=== PATIENT | female | born 1940 | race Caucasian/White ===

== ENCOUNTER 2016-07-17 07:45 | Outpatient (CLI) | payer MEDICARE, MEDICAID | END 2016-07-17 07:46 | disposition home or self-care (01) | DX: E78.5 Hyperlipidemia, unspecified (principal); N18.3 Chronic kidney disease, stage 3 (moderate); I12.9 Hypertensive chronic kidney disease with stage 1 through stage 4 chronic kidney disease, or unspecified chronic kidney disease ==

== ENCOUNTER 2017-09-05 08:00 | Outpatient (CLI) | payer MEDICARE, MEDICAID ==
[2017-09-05 12:23] LABS: BASOPHILS # (AUTO) 0.1 10^3/uL (0.0-0.1); BASOPHILS % (AUTO) 1.9 %; EOSINOPHILS # (AUTO) 0.5 10^3/uL (0.0-0.7); EOSINOPHILS % (AUTO) 8.1 %; HGB - HEMOGLOBIN 12.6 g/dL (12.0-16.0); LYMPHOCYTES # (AUTO) 1.7 10^3/uL (1.5-3.5); LYMPHOCYTES % (AUTO) 25.5 %; MEAN CORPUSCULAR HEMOGLOBIN 31.9 pg (27.0-31.0); MEAN CORPUSCULAR HGB CONC 33.8 g/dL (32.0-36.0); MEAN CORPUSCULAR VOLUME 94.4 fL (81.0-99.0); MEAN PLATELET VOLUME 7.8 fL (7.9-10.8); MONOCYTES # (AUTO) 0.7 10^3/uL (0.0-1.0); MONOCYTES % (AUTO) 10.3 %; NEUTROPHILS # (AUTO) 3.7 10^3/uL (1.5-6.6); NEUTROPHILS % (AUTO) 54.2 %; PLT - PLATELET COUNT 277 10^3/uL (130-450); RED BLOOD COUNT 3.95 10^6/uL (4.20-5.40); RED CELL DISTRIBUTION WIDTH 12.5 % (12.0-15.0); WHITE BLOOD COUNT 6.7 x10^3/uL (4.8-10.8)
[2017-09-05 13:13] LABS: ALBUMIN 3.5 g/dL (3.2-5.5); ALBUMIN/GLOBULIN RATIO 1.1 (1.0-2.2); ALKALINE PHOSPHATASE 71 IU/L (42-121); ALT ALANINE AMINOTRANSFERASE 13 IU/L (10-60); AST ASPARTATE AMINOTRANSFERASE 21 IU/L (10-42); BILIRUBIN,TOTAL 0.7 mg/dL (0.2-1.0); BUN - BLOOD UREA NITROGEN 16 mg/dL (6-20); CALCIUM 9.1 mg/dL (8.5-10.3); CARBON DIOXIDE - CO2 27 mmol/L (21-32); CHLORIDE 102 mmol/L (101-111); CHOL/HDL RATIO 6.6 (<4.4); CHOLESTEROL 379 mg/dL; CREATININE 1.1 mg/dL (0.4-1.0); GFR - MDRD 49 (>89); GLUCOSE 83 mg/dL (70-100); HDL CHOLESTEROL 57 mg/dL; LDL CHOLESTEROL,CALCULATED 298 mg/dL; LDL/HDL RATIO 5.2 (<4.4); SODIUM 137 mmol/L (135-145); TOTAL PROTEIN 6.6 g/dL (6.7-8.2); VLDL CHOLESTEROL 24 mg/dL
== END 2017-09-05 08:01 | disposition home or self-care (01) ==
LOC: LAB.WCP 08:00
PROVIDERS: ATTEND Physician Assistant Medical
DX: E87.6 Hypokalemia (principal); I10 Essential (primary) hypertension; E78.5 Hyperlipidemia, unspecified
CPT/HCPCS: 36415; 80053; 80061; 83721; 84443; 85025

== ENCOUNTER 2018-08-24 08:00 | Outpatient (CLI) | payer MEDICARE, MEDICAID ==
[2018-08-24 18:08] LABS: BASOPHILS # (AUTO) 0.1 10^3/uL (0.0-0.1); BASOPHILS % (AUTO) 1.6 %; EOSINOPHILS # (AUTO) 0.6 10^3/uL (0.0-0.7); EOSINOPHILS % (AUTO) 8.6 %; HGB - HEMOGLOBIN 12.2 g/dL (12.0-16.0); LYMPHOCYTES # (AUTO) 1.3 10^3/uL (1.5-3.5); MEAN CORPUSCULAR HEMOGLOBIN 29.7 pg (27.0-31.0); MEAN CORPUSCULAR HGB CONC 30.4 g/dL (32.0-36.0); MEAN CORPUSCULAR VOLUME 97.6 fL (81.0-99.0); MONOCYTES # (AUTO) 0.7 10^3/uL (0.0-1.0); MONOCYTES % (AUTO) 9.3 %; NEUTROPHILS # (AUTO) 4.3 10^3/uL (1.5-6.6); NEUTROPHILS % (AUTO) 60.9 %; PLT - PLATELET COUNT 287 10^3/uL (130-450); RED BLOOD COUNT 4.11 10^6/uL (4.20-5.40); RED CELL DISTRIBUTION WIDTH 12.8 % (12.0-15.0)
[2018-08-24 18:28] LABS: ALBUMIN 3.7 g/dL (3.2-5.5); ALBUMIN/GLOBULIN RATIO 1.2 (1.0-2.2); ALKALINE PHOSPHATASE 74 IU/L (42-121); ALT ALANINE AMINOTRANSFERASE 11 IU/L (10-60); AST ASPARTATE AMINOTRANSFERASE 19 IU/L (10-42); BILIRUBIN,TOTAL 0.8 mg/dL (0.2-1.0); BUN - BLOOD UREA NITROGEN 14 mg/dL (6-20); CHOL/HDL RATIO 7.6 (<4.4); CHOLESTEROL 382 mg/dL; CREATININE 1.1 mg/dL (0.4-1.0); GFR - MDRD 48 (>89); HDL CHOLESTEROL 50 mg/dL; LDL CHOLESTEROL,CALCULATED 306 mg/dL; LDL/HDL RATIO 6.1 (<4.4); TOTAL PROTEIN 6.8 g/dL (6.7-8.2); VLDL CHOLESTEROL 26 mg/dL
[2018-08-24 18:33] LABS: CALCIUM 9.4 mg/dL (8.5-10.3); CARBON DIOXIDE - CO2 26 mmol/L (21-32); CHLORIDE 104 mmol/L (101-111); GLUCOSE 82 mg/dL (70-100); SODIUM 141 mmol/L (135-145)
== END 2018-08-24 08:01 | disposition home or self-care (01) ==
LOC: LAB.WCP 08:00
PROVIDERS: ATTEND Family Medicine
DX: E78.5 Hyperlipidemia, unspecified (principal); I10 Essential (primary) hypertension; H49.00 Third [oculomotor] nerve palsy, unspecified eye
CPT/HCPCS: 36415; 80053; 80061; 83721; 84443; 85025

== ENCOUNTER 2018-09-11 14:20 | Outpatient (CLI) | payer MEDICARE, MEDICAID ==
--- NOTE | 2018-09-14 11:51 | Mammography Report ---
Reason: SCREENING MAMMO Procedure Date: 09/11/2018 Accession Number: [id number] / [id number] Procedure: MGN - Screening Mammo Dig Bilat CPT Code: FULL RESULT: EXAM: Screening Mammo Dig Bilat DATE: 09/11/2018 2:53 PM CLINICAL HISTORY: Screening encounter. No reported risk factors. TECHNIQUE: (B) - Bilateral CC and MLO views were obtained. COMPARISON: 01/27/2013 and 12/23/2011. PARENCHYMAL PATTERN: (A) - The breast(s) demonstrate(s) scattered fibroglandular densities. FINDINGS: There are coarse typically benign calcifications. Nodular appearance in the right breast demonstrates long-term stability, typically benign. There are no suspicious masses, calcifications, or areas of distortion. IMPRESSION: Benign findings. BI-RADS category 2. RECOMMENDATION: (ANNUAL) - Recommend routine annual screening mammography. BI-RADS CATEGORY: (2) - Benign Findings. STANDARD QUALIFYING STATEMENTS: 1. This examination was not reviewed with the aid of Computer-Aided Detection (CAD). 2. A negative or benign imaging report should not preclude biopsy if clinically suspicious findings are present. 3. Dense breasts may obscure an underlying neoplasm. 4. This examination was reviewed without the aid of 3D breast imaging (tomosynthesis).
== END 2018-09-11 14:21 | disposition home or self-care (01) ==
LOC: DI.N 14:20
PROVIDERS: ATTEND Family Medicine
DX: Z12.31 Encounter for screening mammogram for malignant neoplasm of breast (principal)
CPT/HCPCS: 77067

== ENCOUNTER 2019-04-01 12:05 | Outpatient (CLI) | payer MEDICARE, MEDICAID | END 2019-04-01 12:06 | disposition critical access hospital (66) | LOC: EMS 12:05 | PROVIDERS: ATTEND Surgery | DX: R10.9 Unspecified abdominal pain (principal) | CPT/HCPCS: A0425; A0427 ==

== ENCOUNTER 2019-04-01 12:34 | Inpatient (IN) | payer MEDICARE, MEDICAID ==
--- NOTE | 2019-04-01 13:10 | ED Physician Documentation ---
PD HPI ABD PAIN - Stated complaint Stated Complaint: ABD PAIN - Chief complaint Chief Complaint: Abd Pain - History obtained from History obtained from: Patient - History of Present Illness Timing - onset: Today, Last night (The patient had had no bowel movement for the last 5 or 6 days though states she has a history of chronic constipation will often go 5 or 6 days. Typically she will use a stool softener and will allow her bowel movement and do okay. She typically would not have much pain with this. She does not take any daily stool softeners. However she noted some crampiness overnight last night and into significant pain in the lower abdomen this morning with nausea and episodes of vomiting. She states she had several small golf ball size firm stools out but did not have any improvement in her pain. She denied any blood in her stool. She states she does have a hemorrhoid but is not really tender. She denies fever or chills. She has not had any prior similar episode.) Timing - duration: Hours Timing - details: Abrupt onset, Still present Quality: Cramping, Sharp, Pain Location: Periumbilical, LLQ Radiation: Lower back Improved by: Position (lying on side). No: Vomiting Worsened by: Position (lying flat), Palpation. No: Breathing Associated symptoms: Nausea, Vomiting, Constipation, Loss of appetite, Other (slightly tender hemorrhoid). No: Fever (but had chills this morning and some started last night), Melena, Hematochezia Similar symptoms before: Has not had sx before (She has had constipation in the past but no prior abdominal pain episodes like this.) Recently seen: Not recently seen Review of Systems Constitutional: reports: Chills, Myalgias. denies: Fever Nose: denies: Rhinorrhea / runny nose, Congestion Throat: denies: Sore throat Cardiac: denies: Chest pain / pressure Respiratory: denies: Dyspnea, Cough GI: reports: Abdominal Pain, Nausea, Vomiting, Constipation. denies: Hematemesis, Bloody / black stool : denies: Dysuria, Frequency Neurologic: reports: Generalized weakness. denies: Near syncope, Altered mental status PD PAST MEDICAL HISTORY - Past Medical History Past Medical History: Yes Cardiovascular: None Respiratory: None Endocrine/Autoimmune: None GI: None : None HEENT: Other Psych: Depression Musculoskeletal: None Derm: Eczema - Past Surgical History Past Surgical History: Yes /[employer]: Tubal ligation HEENT: Tonsil/Adenoidectomy - Present Medications Home Medications: Ambulatory Orders Medication Instructions Recorded Confirmed FLUoxetine [PROzac] 20 mg PO DAILY 08/28/14 08/28/14 Rosuvastatin Calcium [Crestor] 20 mg PO DAILY 08/28/14 08/28/14 - Allergies Allergies/Adverse Reactions: Allergies Allergy/AdvReac Type Severity Reaction Status Date / Time Sulfa (Sulfonamide Allergy Unknown Verified 04/01/19 12:39 Antibiotics) - Social History Does the pt smoke?: No Smoking Status: Never smoker Does the pt drink ETOH?: No Does the pt have substance abuse?: No PD ED PE NORMAL - Vitals Vital signs reviewed: Yes - General General: Alert and oriented X 3, No acute distress, Well developed/nourished - HEENT HEENT: Pharynx benign - Neck Neck: Supple, no meningeal sign, No adenopathy - Cardiac Cardiac: RRR, No murmur - Respiratory Respiratory: Clear bilaterally - Abdomen Abdomen: Non distended, No organomegaly, Other (She has diminished bowel sounds throughout. There is some mild firmness to moderate firmness in the mid abdomen to left lower with general tenderness to palpation and mildly to percussion. There is no rebound tenderness. The upper abdomen is slightly tender in epigastric area. The main tenderness is in the very and periumbilical and mid to left lower quadrants.) - Female Female : Deferred - Rectal Rectal: Other (There is an external hemorrhoid which is soft and reducible with some inflammation. No bleeding to it. No thrombosis. Digital exam showed there to be a small bit of firm stool in the vault just at the tip of my finger but no large impaction.) - Back Back: No CVA TTP - Derm Derm: Normal color, Warm and dry - Extremities Extremities: No tenderness to palpate, No edema, No calf tenderness / cord - Neuro Neuro: Alert and oriented X 3, No motor deficit, Normal speech Results - Vitals Vitals: Vital Signs - 24 hr 04/01/19 04/01/19 12:39 14:31 Temperature 36.8 C Heart Rate 67 74 Respiratory 19 17 Rate Blood Pressure 114/56 L 126/58 L O2 Saturation 100 96 Oxygen O2 Source Room air - Labs Labs: Laboratory Tests 01/04/01/19 04/01/19 13:24 13:24 13:53 WBC 15.0 H RBC 3.96 L Hgb 12.3 Hct 37.0 MCV 93.4 MCH 31.1 H MCHC 33.2 RDW 12.2 Plt Count 257 MPV 9.3 Neut # (Auto) 13.4 H Lymph # (Auto) 0.6 L [place] # (Auto) 0.8 Eos # (Auto) 0.0 Baso # (Auto) 0.1 Absolute Nucleated RBC 0.00 Nucleated RBC % 0.0 Sodium 140 Potassium 3.5 Chloride 104 Carbon Dioxide 19 L Anion Gap 17.0 H BUN 20 Creatinine 1.4 H Estimated GFR (MDRD) 37 L Glucose 127 H Lactic Acid 3.9 H* Calcium 8.8 Total Bilirubin 1.3 H AST 26 ALT 14 Alkaline Phosphatase 62 Total Protein 6.3 L Albumin 3.6 Globulin 2.7 Albumin/Globulin Ratio 1.3 Lipase 36 - Rads (name of study) abd CT Radiology: Prelim report reviewed (Thickening of the wall of the descending colon consistent with colitis. No signs of perforation nor abscess.), See rad report PD MEDICAL DECISION MAKING - ED course Complexity details: reviewed results (CT is showing a segment of colitis. No signs of free air no free fluid. No other acute surgical process.), considered differential (She has had some constipation but has a history of chronic constipation so this did not seem the likely cause of the pain all by itself. We will look for other causes such as diverticulitis or appendix or colitis. Worst case would be a perforation because of increased pressure from constipation though her abdomen does not seem as peritoneal as that. We will get fluids and pain and nausea medicine for her with IV. Will check labs urine and CT scan.), d/w patient Departure - Departure Disposition: [facility] DC/Xfer Clinical Impression: Acute colitis, Lower abdominal pain Hemorrhoid Qualifiers: Hemorrhoid type: unspecified Qualified Code(s): K64.9 - Unspecified hemorrhoids Constipation Qualifiers: Constipation type: chronic idiopathic constipation Qualified Code(s): K59.04 - Chronic idiopathic constipation
[2019-04-01 13:28] LABS: BASOPHILS # (AUTO) 0.1 10^3/uL (0.0-0.1); BASOPHILS % (AUTO) 0.5 %; EOSINOPHILS % (AUTO) 0.1 %; HGB - HEMOGLOBIN 12.3 g/dL (12.0-16.0); LYMPHOCYTES # (AUTO) 0.6 10^3/uL (1.5-3.5); LYMPHOCYTES % (AUTO) 4.1 %; MEAN CORPUSCULAR HEMOGLOBIN 31.1 pg (27.0-31.0); MEAN CORPUSCULAR HGB CONC 33.2 g/dL (32.0-36.0); MEAN CORPUSCULAR VOLUME 93.4 fL (81.0-99.0); MEAN PLATELET VOLUME 9.3 fL (7.9-10.8); MONOCYTES # (AUTO) 0.8 10^3/uL (0.0-1.0); MONOCYTES % (AUTO) 5.1 %; NEUTROPHILS # (AUTO) 13.4 10^3/uL (1.5-6.6); NEUTROPHILS % (AUTO) 89.6 %; PLT - PLATELET COUNT 257 10^3/uL (130-450); RED BLOOD COUNT 3.96 10^6/uL (4.20-5.40); RED CELL DISTRIBUTION WIDTH 12.2 % (12.0-15.0)
[2019-04-01 13:41] LABS: ALBUMIN 3.6 g/dL (3.2-5.5); ALBUMIN/GLOBULIN RATIO 1.3 (1.0-2.2); BILIRUBIN,TOTAL 1.3 mg/dL (0.2-1.0); CALCIUM 8.8 mg/dL (8.5-10.3); CREATININE 1.4 mg/dL (0.4-1.0); TOTAL PROTEIN 6.3 g/dL (6.7-8.2)
[2019-04-01] MEDS ORDERED: KETOROLAC 15 MG/ML VIAL IVP STA (13:42)
[2019-04-01] MEDS ORDERED: MORPHINE 2 MG/ML CARPUJECT IVP STA (13:42)
[2019-04-01] MEDS ORDERED: SODIUM CHLORIDE 0.9% 1,000 ML IV ONE ×2 (13:42→14:52)
[2019-04-01] MEDS ORDERED: MINERAL OIL ENEMA 133 ML BOTTLE RC STA (13:44)
[2019-04-01] MEDS ORDERED: IOVERSOL 320 100 ML VIAL IVP ONE ×2 (13:58→14:24)
--- NOTE | 2019-04-01 14:56 | CT Report ---
Reason: lower abd pain and chills Procedure Date: 04/01/2019 Accession Number: [id number] / [id number] Procedure: CT - Abdomen/Pelvis W CPT Code: Final Report FULL RESULT: EXAM: CT ABDOMEN AND PELVIS EXAM DATE: 04/01/2019 02:23 PM. CLINICAL HISTORY: Lower abd pain and chills. COMPARISONS: None. TECHNIQUE: Routine helical CT imaging was performed through the abdomen and pelvis. IV contrast: OPTI 320 80ML. Enteric contrast: No. Reconstructions: Coronal and sagittal. In accordance with CT protocol optimization, one or more of the following dose reduction techniques were utilized for this exam: automated exposure control, adjustment of mA and/or KV based on patient size, or use of iterative reconstructive technique. FINDINGS: Lung Bases: Unremarkable. Liver: Normal. No masses. Gallbladder/Bile Ducts: Unremarkable. Spleen: Normal. Pancreas: Normal. Adrenal Glands: Normal. Kidneys: Normal. No masses or hydronephrosis. Peritoneal Cavity/Bowel: There is no CT evidence of acute appendicitis. The descending colon demonstrate mucosal thickening and adjacent fat stranding. This is consistent with a nonspecific colitis. There is no focal fluid collection to suggest the presence of an abscess. Pelvic Organs: No mass or cyst is seen within the pelvis. There is no periaortic or pelvic lymphadenopathy. Vasculature: There is atherosclerosis of the aorta and iliac arteries. Bones: No significant abnormality. Other: None. IMPRESSION: Nonspecific colitis involving the descending colon. Atherosclerosis of the aorta and iliac arteries. RADIA
[2019-04-01] MEDS ORDERED: cefTRIAXone 1 GM VIAL IVP STA (15:16)
[2019-04-01] MEDS ORDERED: metroNIDAZOLE 500 MG/100 ML 500 MG/100 ML BAG IV ONE (15:16)
[2019-04-01] MEDS ORDERED: SODIUM CHLORIDE FLUSH 0.9% 10 ML SYRINGE IVP PRN (15:33)
[2019-04-01] MEDS ORDERED: HYDROmorphone 1 MG/ML CARPUJECT IVP PRN (15:33)
[2019-04-01] MEDS ORDERED: PROCHLORPERAZINE 10 MG/2 ML VIAL IVP PRN (15:33)
[2019-04-01 15:35] LABS: GLUCOSE, URINE (UA) NEGATIVE (NEGATIVE); KETONES,URINE (UA) TRACE mg/dL (NEGATIVE); LEUKOCYTE ESTERASE, URINE NEGATIVE (NEGATIVE); NITRITE,URINE NEGATIVE (NEGATIVE); OCCULT BLOOD,URINE NEGATIVE (NEGATIVE); PH,URINE 7.5 PH (5.0-7.5); PROTEIN,URINE NEGATIVE (NEGATIVE); UROBILINOGEN,URINE 2 E.U./dL (NORMAL)
[2019-04-01 15:56] LABS: BILIRUBIN,URINE NEGATIVE (NEGATIVE); CLARITY,URINE CLEAR (CLEAR); ICTOTEST,URINE NEGATIVE
[2019-04-01] MEDS: D5NS W/20 MEQ KCL 1,000 ML IV SCH (18:33)
[2019-04-01] MEDS: SODIUM CHLORIDE FLUSH 0.9% 10 ML SYRINGE IVP SCH (18:34)
--- NOTE | 2019-04-01 18:59 | HISTORY & PHYSICAL EXAMINATION ---
DATE OF SERVICE: 04/01/2019 Physician: Chary Fitch MD HISTORY OF PRESENT ILLNESS: This is a 78-year-old white female with a history of anxiety, hypertensi on, hyperlipidemia, remote ex-smoker. Patient has chronic constipation, sometimes has no bowel movem ents for 5 days. Patient was having no bowel movements for the past 5-6 days and today developed abd ominal pain, nausea and vomiting, and had a very dry, hard bowel movement, but no blood and with this started to have severe localized pain in both left lower quadrant and right lower quadrant. She diana d this pain was 10/10 and she called an ambulance for it. In the emergency room, workup showed that she has an elevated white count and elevated lactic acid level and CT imaging shows acute colitis. PAST MEDICAL HISTORY 1. Chronic constipation. 2. Hypertension. 3. Anxiety. ALLERGIES: SULFA. MEDICATIONS 1. Crestor, which she stopped a year ago. 2. Prozac 20 mg daily. 3. She takes blood pressure medications, but she does not remember the names of 2 of them. FAMILY HISTORY: Noncontributory. SOCIAL HISTORY: She is an ex-smoker who quit over 30 years ago, drinks no alcohol. No illicit drug use history. She lives alone. Her many years ago. She has an adult son who lives out of state. Her closest friend is her neighbor who currently has the keys to her house to take care of her cat. REVIEW OF SYSTEMS: A comprehensive review of systems was performed and the pertinent positives are l isted, the rest are negative. PHYSICAL EXAMINATION GENERAL: White female who is in no distress, supine in bed. VITAL SIGNS: Blood pressure 120/60, heart rate 74 in sinus rhythm, afebrile, room air saturation 96% . HEENT: Reveals moist oral mucosa. Good dentition. NECK: Without JVD. LUNGS: Clear. HEART: Normal heart sounds. ABDOMEN: Soft, diminished breath sounds. No guarding or rebound or tenderness. No organomegaly. N o mass. No bruit. EXTREMITIES: No clubbing, cyanosis or edema. NEUROLOGIC: Grossly intact. LABORATORY DATA: Normal electrolytes, BUN 20, creatinine 1.4. Lactic acid 3.9, bilirubin 1.3. Lipa se 36. Normal liver tests. CBC shows a white count of 15 with 18% neutrophils. Platelet count of 2 57 and hemoglobin was 12.3. Urinalysis unremarkable. DIAGNOSTIC DATA: No chest x-ray was done. Abdomen and pelvis CT showed normal spleen and pancreas, adrenal glands and kidneys. There is no acute appendicitis and the descending colon has mucosal thic kening and adjacent fat stranding consistent with a nonspecific colitis of the descending colon and t here is no abscess suggested or pelvic lymphadenopathy. There is atherosclerosis of the abdominal ao rta and iliac arteries. IMPRESSION AND DIAGNOSES 1. Acute colitis. 2. Acute kidney injury. 3. Elevated lactic acid level, but normal vital signs. Therefore, not criteria for sepsis at this t hany. 4. History of constipation. 5. History of hypertension. 6. Anxiety disorder. PLAN: Admit patient to medical/surgical status. Begin IV hydration and bowel rest. Begin empiric a ntibiotics using Flagyl. Continue with her anxiety medications, but hold the blood pressure medicati ons since it currently is not elevated, use parenteral management if the blood pressure rises. Follo w her CBC daily. Follow her lactic acid in 3 hours to assure that it is decreasing. Continue with I V hydration, antiemetics if needed and pain medication as needed. Consider surgery consult if there is worsening of her symptoms with this conservative management. CODE STATUS: FULL CODE. DEEP VENOUS THROMBOSIS PROPHYLAXIS: SCDs. ATTESTATION: Patient is expected to be discharged or transferred to another facility within 96 hours : Yes. TD: 04/01/2019 18:50
[2019-04-01] MEDS: FAMOTIDINE 20 MG/2 ML VIAL IVP SCH (21:43)
[2019-04-01] MEDS: metroNIDAZOLE 500 MG/100 ML 500 MG/100 ML BAG IV SCH (21:50)
[2019-04-01] MEDS: ONDANSETRON 4 MG/2 ML VIAL IVP PRN (22:48)
[2019-04-02] MEDS: SODIUM CHLORIDE FLUSH 0.9% 10 ML SYRINGE IVP SCH ×3 (03:00→16:47)
[2019-04-02] MEDS: D5NS W/20 MEQ KCL 1,000 ML IV SCH ×3 (03:00→18:17)
[2019-04-02 05:31] LABS: BASOPHILS # (AUTO) 0.1 10^3/uL (0.0-0.1); BASOPHILS % (AUTO) 0.5 %; EOSINOPHILS % (AUTO) 0.1 %; HGB - HEMOGLOBIN 10.8 g/dL (12.0-16.0); LYMPHOCYTES # (AUTO) 1.3 10^3/uL (1.5-3.5); LYMPHOCYTES % (AUTO) 11.1 %; MEAN CORPUSCULAR HEMOGLOBIN 31.5 pg (27.0-31.0); MEAN CORPUSCULAR HGB CONC 32.2 g/dL (32.0-36.0); MEAN CORPUSCULAR VOLUME 97.7 fL (81.0-99.0); MEAN PLATELET VOLUME 9.5 fL (7.9-10.8); MONOCYTES # (AUTO) 1.3 10^3/uL (0.0-1.0); MONOCYTES % (AUTO) 10.7 %; NEUTROPHILS % (AUTO) 77.1 %; PLT - PLATELET COUNT 229 10^3/uL (130-450); RED BLOOD COUNT 3.43 10^6/uL (4.20-5.40); RED CELL DISTRIBUTION WIDTH 12.9 % (12.0-15.0); WHITE BLOOD COUNT 11.7 x10^3/uL (4.8-10.8)
[2019-04-02] MEDS: metroNIDAZOLE 500 MG/100 ML 500 MG/100 ML BAG IV SCH ×3 (05:39→21:09)
[2019-04-02 05:45] LABS: ALBUMIN 2.9 g/dL (3.2-5.5); ALBUMIN/GLOBULIN RATIO 1.3 (1.0-2.2); BILIRUBIN,TOTAL 0.6 mg/dL (0.2-1.0); CREATININE 1.1 mg/dL (0.4-1.0); TOTAL PROTEIN 5.2 g/dL (6.7-8.2)
[2019-04-02] MEDS: FAMOTIDINE 20 MG/2 ML VIAL IVP SCH ×2 (08:17→21:09)
[2019-04-02] MEDS: FLUoxetine 10 MG CAPSULE PO SCH (08:18)
--- NOTE | 2019-04-02 09:06 | PHARMACY PROGRESS NOTE ---
- Best Possible Medication History Admit Date and Time: 04/01/19 1532 Processed by: Pharmacy Medication History completed: Yes Patient Interview: Completed Secondary Source(s): Physician records, Pharmacy records, Insurance records As the person ultimately responsible for medication therapy, providers are able to order a medication from an existing home medication list in [facility] via the "Reconcile Routine" prior to Confirmation of that medication by net application support specialist. Such practice is discouraged except when the physician, in their clinical judgment, deems that a medical need exists for a medication without regard to previous use.
--- NOTE | 2019-04-02 12:57 | PROVIDER PROGRESS NOTE ---
Assessment/Plan - Problem List (1) Acute colitis Assessment/Plan: CT imaging of the abdomen showed colon wall thickening and stranding consistent with acute colitis. WBC has decreased from 15 to 11 and neutrophils from 13 to 9 She has had a BM and now starting to have liquid stools. Continue with IV fluids. Advance diet to clear liquid and further if tolerated. Continue IV Flagyl. General surgery consult will be requested to follow along with us. (2) Rectal bleeding Assessment/Plan: After having a loose bowel movement this morning, she is now having "bleeding like a heavy period" from rectal hemorrhage. Will request general surgery to follow along on her case, Dr Sharad Fleming was called (3) SAPNA (acute kidney injury) Assessment/Plan: Creatinine has improved from 1.4 to 1.1. Continue with IV hydration. Follow BMP daily (4) Constipation Qualifiers: Constipation type: chronic idiopathic constipation Qualified Code(s): K59.04 - Chronic idiopathic constipation Assessment/Plan: She describes occasionally having no BMs for 5 days and often has very hard dry stoo (5) Hx of essential hypertension Assessment/Plan: Her blood pressures running 130s over 50s therefore Amlodipine is on hold (6) Anxiety Assessment/Plan: Her home dose of fluoxetine has been continued - Current Meds Current Meds: Current Medications Generic Name Dose Route Start Last Admin Trade Name Freq PRN Reason Stop Dose Admin Famotidine 10 mg 04/01/19 21:00 04/02/19 08:17 Pepcid IVP 10 mg BID BERYL Administration Fluoxetine HCl 20 mg 04/02/19 09:00 04/02/19 08:18 Prozac PO 20 mg DAILY BERYL Administration Potassium Chloride/Dextrose/Sod Cl 1,000 mls @ 125 mls/hr 04/01/19 16:00 04/02/19 08:17 IV 125 mls/hr .Q8H BERYL Administration Metronidazole 500 mg in 100 mls @ 100 mls/hr 04/01/19 22:00 04/02/19 06:58 Flagyl 500 Mg/100 Ml IV Infused Q8H BERYL Infusion Ondansetron HCl 4 mg 04/01/19 15:33 04/01/19 22:48 Zofran Inj IVP 4 mg Q6HR PRN Administration Nausea / Vomiting Sodium Chloride 10 ml 04/01/19 15:33 04/01/19 21:44 Normal Saline Flush 0.9% IVP 10 ml PRN PRN Administration NEEDED PER PROVIDER ORDERS Sodium Chloride 10 ml 04/01/19 17:00 04/02/19 08:17 Normal Saline Flush 0.9% IVP 10 ml 0100,0900,1700 BERYL Administration - Lab Result Fish Bone Diagrams: 04/02/19 05:00 04/02/19 05:00 - Additional Planning My Orders: My Active Orders 04/01/19 15:33 Activity Orders [RC] Q2HR IO [RC] IOSHIFT Initiate Bowel Care Protocol [RC] .protocol Initiate Line Care Protocol [RC] QSHIFT Initiate Personal Care Protoco [RC] .protocol Oxygen Therapy [RC] Routine Vital Signs [RC] 0800,1600,0000 HYDROmorphone INJ CARP [Dilaudid Inj Carp] 1 mg IVP Q2HR PRN Ondansetron Inj [Zofran Inj] 4 mg IVP Q6HR PRN Prochlorperazine Inj [Compazine Inj] 10 mg IVP Q6HR PRN Sodium Chloride Flush 0.9% [Normal Saline Flush 0.9%] 10 ml IVP PRN PRN Code Status [OTHERS] Routine Condition of Patient [OTHERS] Routine DVT Prophylaxis [OTHERS] Routine 04/01/19 15:34 IV Insert [RC] .ONCE 04/01/19 15:35 SCDs [RC] QSHIFT 04/01/19 16:00 D5ns W/20 Meq KCl 1,000 ml IV 125 mls/hr 04/01/19 17:00 Sodium Chloride Flush 0.9% [Normal Saline Flush 0.9%] 10 ml IVP 0100,0900,1700 04/01/19 21:00 Famotidine [Pepcid] 10 mg IVP BID 04/01/19 22:00 metroNIDAZOLE 500 MG/100 ML [Flagyl 500 mg/100 ml] 500 mg in 100 ml IV Q8H 04/02/19 09:00 FLUoxetine [PROzac] 20 mg PO DAILY 04/02/19 Dinner DIET [Soft (Low Fiber) Diet] [DIET] 04/02/19 Lunch Clear Liquid Diet [DIET] 04/03/19 05:00 CBC - COMP BLD CT W/AUTO DIFF [HEME] DAILYLAB CMP [COMPREHENSIVE METABOLIC PANEL] [CHEM] DAILYLAB 04/04/19 05:00 CBC - COMP BLD CT W/AUTO DIFF [HEME] DAILYLAB CMP [COMPREHENSIVE METABOLIC PANEL] [CHEM] DAILYLAB Subjective - Subjective Patient Reports: Feeling Better Nursing Reports: Other (Liquid BM, without pain) Objective Vital Signs: Vital Signs - 24 hr 04/01/19 04/01/19 04/01/19 14:31 15:00 16:30 Temperature 36.7 C Heart Rate 74 75 Heart Rate [ 82 Brachial] Respiratory 17 16 20 Rate Blood Pressure 126/58 L 126/69 Blood Pressure 146/62 H [Right Brachial artery] O2 Saturation 96 98 100 04/02/19 04/02/19 04/02/19 00:00 05:35 08:00 Temperature 36.5 C 36.5 C 37.2 C Heart Rate 80 Heart Rate [ 80 76 Brachial] Respiratory 18 18 16 Rate Blood Pressure Blood Pressure 130/53 L 130/55 L [Right Brachial artery] O2 Saturation 95 95 97 Oxygen O2 Source Room air I&O (Last 24 Hrs): Intake and Output Totals x24h 03/31/19 04/01/19 04/02/19 23:59 23:59 23:59 Intake Total 0.417 Balance 0.417 General: Alert, Oriented x3 HEENT: Mucous membr. moist/pink Neck: Supple, No JVD Neuro: Alert, Non Focal Cardiovascular: Regular rate, No murmurs Respiratory: No respiratory distress, Breath sounds nml Abdomen: Normal bowel sounds, Soft, No tenderness Extremities: No edema - Results Results: Laboratory Results WBC 11.7 x10^3/uL (4.8-10.8) H 04/02/19 05:00 RBC 3.43 10^6/uL (4.20-5.40) L 04/02/19 05:00 Hgb 10.8 g/dL (12.0-16.0) L 04/02/19 05:00 Hct 33.5 % (37.0-47.0) L 04/02/19 05:00 MCV 97.7 fL (81.0-99.0) 04/02/19 05:00 MCH 31.5 pg (27.0-31.0) H 04/02/19 05:00 MCHC 32.2 g/dL (32.0-36.0) 04/02/19 05:00 RDW 12.9 % (12.0-15.0) 04/02/19 05:00 Plt Count 229 10^3/uL (130-450) 04/02/19 05:00 MPV 9.5 fL (7.9-10.8) 04/02/19 05:00 Neut # (Auto) 9.0 10^3/uL (1.5-6.6) H 04/02/19 05:00 Lymph # (Auto) 1.3 10^3/uL (1.5-3.5) L 04/02/19 05:00 [place] # (Auto) 1.3 10^3/uL (0.0-1.0) H 04/02/19 05:00 Eos # (Auto) 0.0 10^3/uL (0.0-0.7) 04/02/19 05:00 Baso # (Auto) 0.1 10^3/uL (0.0-0.1) 04/02/19 05:00 Absolute Nucleated RBC 0.00 x10^3/uL 04/02/19 05:00 Nucleated RBC % 0.0 /100WBC 04/02/19 05:00 Sodium 143 mmol/L (135-145) 04/02/19 05:00 Potassium 3.8 mmol/L (3.5-5.0) 04/02/19 05:00 Chloride 112 mmol/L (101-111) H 04/02/19 05:00 Carbon Dioxide 21 mmol/L (21-32) 04/02/19 05:00 Anion Gap 10.0 (6-13) 04/02/19 05:00 BUN 18 mg/dL (6-20) 04/02/19 05:00 Creatinine 1.1 mg/dL (0.4-1.0) H 04/02/19 05:00 Estimated GFR (MDRD) 48 (>89) L 04/02/19 05:00 Glucose 159 mg/dL (70-100) H 04/02/19 05:00 Lactic Acid 1.9 mmol/L (0.5-2.2) 04/01/19 17:01 Calcium 8.0 mg/dL (8.5-10.3) L 04/02/19 05:00 Magnesium 2.3 mg/dL (1.7-2.8) 04/02/19 05:00 Total Bilirubin 0.6 mg/dL (0.2-1.0) 04/02/19 05:00 AST 22 IU/L (10-42) 04/02/19 05:00 ALT 12 IU/L (10-60) 04/02/19 05:00 Alkaline Phosphatase 50 IU/L (42-121) 04/02/19 05:00 Total Protein 5.2 g/dL (6.7-8.2) L 04/02/19 05:00 Albumin 2.9 g/dL (3.2-5.5) L 04/02/19 05:00 Globulin 2.3 g/dL (2.1-4.2) 04/02/19 05:00 Albumin/Globulin Ratio 1.3 (1.0-2.2) 04/02/19 05:00 Lipase 36 U/L (22-51) 04/01/19 13:24 Urine Color DARK YELLOW 04/01/19 15:20 Urine Clarity CLEAR (CLEAR) 04/01/19 15:20 Urine pH 7.5 PH (5.0-7.5) 04/01/19 15:20 Ur Specific [place] 1.010 (1.002-1.030) 04/01/19 15:20 Urine Protein NEGATIVE mg/dL (NEGATIVE) 04/01/19 15:20 Urine Glucose (UA) NEGATIVE mg/dL (NEGATIVE) 04/01/19 15:20 Urine Ketones TRACE mg/dL (NEGATIVE) 04/01/19 15:20 Urine Occult Blood NEGATIVE (NEGATIVE) 04/01/19 15:20 Urine Nitrite NEGATIVE (NEGATIVE) 04/01/19 15:20 Urine Bilirubin NEGATIVE (NEGATIVE) 04/01/19 15:20 Urine Urobilinogen 2 E.U./dL (NORMAL) H 04/01/19 15:20 Ur Leukocyte Esterase NEGATIVE (NEGATIVE) 04/01/19 15:20 Ur Microscopic Review NOT INDICATED 04/01/19 15:20 Urine Culture Comments NOT INDICATED 04/01/19 15:20
[2019-04-02] MEDS: ONDANSETRON 4 MG/2 ML VIAL IVP PRN (14:30)
--- NOTE | 2019-04-02 16:38 | CONSULTATION NOTE ---
Referring Provider Name of Referring Provider:: Dr. Fitch Consult Date: 04/02/19 Chief Complaint - Chief Complaint Chief Complaint: abd pain History of Present Illness - Admitted From Admitted From:: ER - History Obtained From Records Reviewed: yes History obtained from: pt, records Exam Limitations: none - History of Present Illness HPI Comment/Other: 78 yo female with gradual onset of progressively worsening crampy lower abd pains associated with nausea and retching yesterday morning. Pt has a hx of chronic constipation and had taken a laxative the prior evening with several small firm nonbloody stools resulting. Because of severe pain she presented to the ER yesterday and was evaluated and admitted. No hx prior similar sx. Notes occasional passage of small amounts of BRBPR on the toilet paper after passing a hard stool. Normally moves bowels once or twice a week. Last colonoscopy was in the early and reportedly nl. Neg FH CRC. No recent wt loss. Only prior abd surgery was a tubal ligation. Evaluation in the ER included a WBC of 15K, elevated lactate of 3.9, and CT abd/pelvis showing abn thickening of the descending colon c/w colitis. She was admitted, treated with bowel rest, IVF, IV metronidazole and analgesics. She reports feeling much better today with minimal residual discomfort. She passed several loose bloody bms overnight including two large round firm stools which were painful to pass. Her nausea has resolved and she is tolerating a liquid diet well at present. She denies exposure to others who have been ill, no hx of exposure to contaminated water supplies, no recent antbiotic use. No melena. Repeat lactate is nl and repeat WBC is now 11. Surgical consultation was requested. 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 ligation HEENT: reports: Tonsil/Adenoidectomy - Family & Social History Family History Comment/Other: neg for GI tumors Living arrangement: At home - Substance History Use: Uses substance without health or social issues: NONE Meds/Allgy - Home Medications Home Medications: Ambulatory Orders Medication Instructions Recorded Confirmed Fluoxetine HCl 20 mg PO DAILY 04/02/19 04/02/19 Potassium Chloride [K-Dur] 20 meq PO BID 04/02/19 04/02/19 amLODIPine [Norvasc] 5 mg PO DAILY 04/02/19 04/02/19 - Allergies Allergies/Adverse Reactions: Allergies Allergy/AdvReac Type Severity Reaction Status Date / Time Sulfa (Sulfonamide Allergy Unknown Verified 04/01/19 12:39 Antibiotics) Review of Systems - Constitutional Constitutional: reports: Chills. denies: Fever, Weight gain, Weight loss - Gastrointestinal Gastrointestinal: reports: Abdominal pain, Constipation, Diarrhea, Change in bowel habits, Rectal bleeding, Bloody stools, Nausea. denies: Abdominal distention, Black stools, Vomiting, Carter blood emesis, Coffee grounds emesis, Reflux/heartburn, Bloating - Hematologic/Lymphatic Hematologic/Lymphatic: denies: Blood clots, Bleeding tendencies - All Other Systems All Other Systems: reports: Reviewed and negative (or covered in HPI/PMH) Exam - Vital Signs Reviewed Vital Signs: Yes Vital Signs: Vital Signs x48h Temp Pulse Resp BP Pulse Ox 04/02/19 16:00 36.7 C 84 18 149/67 H 97 - Physical Exam General Appearance: positive: No acute distress, Alert Eyes Bilateral: positive: Normal inspection, No scleral icterus ENT: positive: ENT inspection nml, Pharynx nml, No signs of dehydration Neck: positive: Nml inspection, No JVD. negative: Lymphadenopathy (R), Lymphadenopathy (L) Respiratory: positive: Chest non-tender, No respiratory distress, Breath sounds nml Cardiovascular: positive: Regular rate & rhythm, No murmur, No gallop Abdomen: positive: Non-tender, Nml bowel sounds, No distention. negative: Guarding, Rebound, Hepatomegaly, Splenomegaly, Mass Skin: positive: Color nml, No rash, Warm, Dry. negative: Cyanosis Extremities: positive: Non-tender, No pedal edema. negative: Calf tenderness Neurologic/Psychiatric: positive: Oriented x3 Conclusion and Plan - Lab Results Laboratory Results 04/02/19 05:00: Magnesium 2.3 04/02/19 05:00: Sodium 143, Potassium 3.8, Chloride 112 H, Carbon Dioxide 21, Anion Gap 10.0, BUN 18, Creatinine 1.1 H, Estimated GFR (MDRD) 48 L, Glucose 159 H, Calcium 8.0 L, Total Bilirubin 0.6, AST 22, ALT 12, Alkaline Phosphatase 50, Total Protein 5.2 L, Albumin 2.9 L, Globulin 2.3, Albumin/Globulin Ratio 1.3 04/02/19 05:00: WBC 11.7 H, RBC 3.43 L, Hgb 10.8 L, Hct 33.5 L, MCV 97.7, MCH 31.5 H, MCHC 32.2, RDW 12.9, Plt Count 229, MPV 9.5, Neut # (Auto) 9.0 H, Lymph # (Auto) 1.3 L, Lawrence # (Auto) 1.3 H, Eos # (Auto) 0.0, Baso # (Auto) 0.1, Absolute Nucleated RBC 0.00, Nucleated RBC % 0.0 04/01/19 17:01: Lactic Acid 1.9 04/01/19 15:20: Urine Color DARK YELLOW, Urine Clarity CLEAR, Urine pH 7.5, Ur Specific [place] 1.010, Urine Protein NEGATIVE, Urine Glucose (UA) NEGATIVE, Urine Ketones TRACE, Urine Occult Blood NEGATIVE, Urine Nitrite NEGATIVE, Urine Bilirubin NEGATIVE, Urine Urobilinogen 2 H, Ur Leukocyte Esterase NEGATIVE, Ur Microscopic Review NOT INDICATED, Urine Culture Comments NOT INDICATED 04/01/19 13:53: Lactic Acid 3.9 H* 04/01/19 13:24: Sodium 140, Potassium 3.5, Chloride 104, Carbon Dioxide 19 L, Anion Gap 17.0 H, BUN 20, Creatinine 1.4 H, Estimated GFR (MDRD) 37 L, Glucose 127 H, Calcium 8.8, Total Bilirubin 1.3 H, AST 26, ALT 14, Alkaline Phosphatase 62, Total Protein 6.3 L, Albumin 3.6, Globulin 2.7, Albumin/Globulin Ratio 1.3, Lipase 36 04/01/19 13:24: WBC 15.0 H, RBC 3.96 L, Hgb 12.3, Hct 37.0, MCV 93.4, MCH 31.1 H, MCHC 33.2, RDW 12.2, Plt Count 257, MPV 9.3, Neut # (Auto) 13.4 H, Lymph # (Auto) 0.6 L, Lawrence # (Auto) 0.8, Eos # (Auto) 0.0, Baso # (Auto) 0.1, Absolute Nucleated RBC 0.00, Nucleated RBC % 0.0 - Diagnostic Imaging Results Diagnostic Imaging Results: positive: Final report reviewed, Read independently Diagnostic Imaging Results Comments: see HPI - Diagnosis Diagnosis: Acute colitis; ddx includes infectious, ischemic, stercal; doubt IBD or neoplasm; Clinically improving rapidly with present management. - Plan Plan: Would add gm negative coverage to antibiotics. OK to advance diet as tolerated to low fiber. Stool cultures and C. diff toxin should be obtained. Pt should undergo colonoscopy after resolution of acute illness to confirm satisfactory healing, and exclude IBD and neoplasm. Discussed with pt. Thanks,
[2019-04-02] MEDS: CIPROFLOXACIN 400 MG/200 ML 200 ML IV SCH (16:47)
[2019-04-02] MEDS ORDERED: ACETAMINOPHEN 325 MG TABLET PO PRN (18:14)
[2019-04-03] MEDS: D5NS W/20 MEQ KCL 1,000 ML IV SCH ×3 (03:20→23:11)
[2019-04-03] MEDS: SODIUM CHLORIDE FLUSH 0.9% 10 ML SYRINGE IVP SCH ×3 (03:21→16:57)
[2019-04-03] MEDS: CIPROFLOXACIN 400 MG/200 ML 200 ML IV SCH ×2 (04:53→16:57)
[2019-04-03 05:06] LABS: BASOPHILS # (AUTO) 0.1 10^3/uL (0.0-0.1); BASOPHILS % (AUTO) 0.8 %; EOSINOPHILS # (AUTO) 0.3 10^3/uL (0.0-0.7); EOSINOPHILS % (AUTO) 3.8 %; LYMPHOCYTES # (AUTO) 1.8 10^3/uL (1.5-3.5); LYMPHOCYTES % (AUTO) 20.2 %; MEAN CORPUSCULAR HEMOGLOBIN 30.6 pg (27.0-31.0); MEAN CORPUSCULAR HGB CONC 31.6 g/dL (32.0-36.0); MEAN CORPUSCULAR VOLUME 96.6 fL (81.0-99.0); MEAN PLATELET VOLUME 9.6 fL (7.9-10.8); MONOCYTES # (AUTO) 0.8 10^3/uL (0.0-1.0); MONOCYTES % (AUTO) 9.3 %; NEUTROPHILS # (AUTO) 5.8 10^3/uL (1.5-6.6); NEUTROPHILS % (AUTO) 65.3 %; PLT - PLATELET COUNT 192 10^3/uL (130-450); RED BLOOD COUNT 3.27 10^6/uL (4.20-5.40); RED CELL DISTRIBUTION WIDTH 13.1 % (12.0-15.0); WHITE BLOOD COUNT 8.9 x10^3/uL (4.8-10.8)
[2019-04-03 05:18] LABS: ALBUMIN 2.7 g/dL (3.2-5.5); ALBUMIN/GLOBULIN RATIO 1.2 (1.0-2.2); BILIRUBIN,TOTAL 0.4 mg/dL (0.2-1.0); CALCIUM 7.8 mg/dL (8.5-10.3); CREATININE 0.9 mg/dL (0.4-1.0)
[2019-04-03] MEDS: metroNIDAZOLE 500 MG/100 ML 500 MG/100 ML BAG IV SCH ×3 (06:02→21:06)
[2019-04-03] MEDS: FLUoxetine 10 MG CAPSULE PO SCH (08:58)
[2019-04-03] MEDS: FAMOTIDINE 20 MG/2 ML VIAL IVP SCH ×2 (08:58→21:06)
--- NOTE | 2019-04-03 13:54 | PROVIDER PROGRESS NOTE ---
Assessment/Plan - Problem List (1) Acute colitis Assessment/Plan: Yesterday when clear liquids were to be advanced to pured or soft yesterday, she had nausea and vomiting. She still has mild tenderness and liquid stool today. Continue with empiric IV Cipro and IV Flagyl. Thus far her Campylobacter culture is neg and C diff PCR is neg. Await other culture results. Will try advancing her diet to pured later today. (2) Rectal bleeding Assessment/Plan: This has decreased since yesterday. General surgery consult appreciated. Follow CBC for hemoglobin daily (3) Constipation Qualifiers: Constipation type: chronic idiopathic constipation Qualified Code(s): K59.04 - Chronic idiopathic constipation Assessment/Plan: Patient may have had stercoral colitis from large rockhard stool. This was discussed with the general surgeon yesterday. She will need better management of constipation after discharge, daily MiraLAX is already been suggested by the surgeon. (4) Hx of essential hypertension Assessment/Plan: Her blood pressures running 140s over 60s therefore Amlodipine is still on hold (5) Anxiety Assessment/Plan: Her p.o. daily antianxiety med continues while here (6) SAPNA (acute kidney injury) Assessment/Plan: Resolved - Current Meds Current Meds: Current Medications Generic Name Dose Route Start Last Admin Trade Name Freq PRN Reason Stop Dose Admin Acetaminophen 650 mg 04/02/19 18:14 04/02/19 18:24 Tylenol PO 650 mg Q4HR PRN Administration Pain or Fever > 38C (100.4F) Famotidine 10 mg 04/01/19 21:00 04/03/19 08:58 Pepcid IVP 10 mg BID BERYL Administration Fluoxetine HCl 20 mg 04/02/19 09:00 04/03/19 08:58 Prozac PO 20 mg DAILY BERYL Administration Potassium Chloride/Dextrose/Sod Cl 1,000 mls @ 125 mls/hr 04/01/19 16:00 04/03/19 13:19 IV 125 mls/hr .Q8H BERYL Administration Metronidazole 500 mg in 100 mls @ 100 mls/hr 04/01/19 22:00 04/03/19 07:04 Flagyl 500 Mg/100 Ml IV Infused Q8H BERYL Infusion Ciprofloxacin 200 mls @ 200 mls/hr 04/02/19 17:00 02/01/20 06:01 Cipro 400 Mg/200 Ml IV Infused Q12H BERYL Infusion Ondansetron HCl 4 mg 04/01/19 15:33 04/02/19 14:30 Zofran Inj IVP 4 mg Q6HR PRN Administration Nausea / Vomiting Sodium Chloride 10 ml 04/01/19 15:33 04/01/19 21:44 Normal Saline Flush 0.9% IVP 10 ml PRN PRN Administration NEEDED PER PROVIDER ORDERS Sodium Chloride 10 ml 04/01/19 17:00 04/03/19 08:58 Normal Saline Flush 0.9% IVP 10 ml 0100,0900,1700 BERYL Administration - Lab Result Fish Bone Diagrams: 04/03/19 04:55 04/03/19 04:55 - Additional Planning My Orders: My Active Orders 04/02/19 17:00 Ciprofloxacin 400 mg/200 ml [Cipro 400 mg/200 ml] 200 ml IV Q12H 04/02/19 18:14 Acetaminophen [Tylenol] 650 mg PO Q4HR PRN 04/02/19 19:50 CUL, STOOL [CULTURE, STOOL] [RM] Urgent 04/03/19 11:20 Miscellaenous Nursing Order [RC] QSHIFT 04/03/19 Dinner Dysphagia Puree Diet [DIET] 04/04/19 05:00 CBC - COMP BLD CT W/AUTO DIFF [HEME] DAILYLAB CMP [COMPREHENSIVE METABOLIC PANEL] [CHEM] DAILYLAB Subjective - Subjective Patient Reports: Resting Comfortably, Other (Has mild tenderness of the lower abdomen, still having liquid bowel movements but no more blood) Objective Vital Signs: Vital Signs - 24 hr 04/02/19 04/02/19 04/03/19 16:00 23:45 07:55 Temperature 36.7 C 37.1 C 36.8 C Heart Rate [ 84 78 76 Brachial] Respiratory 18 16 16 Rate Blood Pressure 149/67 H 141/55 H 139/76 H [Right Brachial artery] O2 Saturation 97 96 96 Oxygen O2 Source Room air I&O (Last 24 Hrs): Intake and Output Totals x24h 04/01/19 04/02/19 04/03/19 23:59 23:59 23:59 Intake Total 4101.250 2037.750 Output Total 200 Balance 3901.250 2037.750 General: Alert, Oriented x3 HEENT: Mucous membr. moist/pink Neck: Supple, No JVD Neuro: Alert, Non Focal Cardiovascular: Regular rate, No murmurs Respiratory: No respiratory distress, Breath sounds nml Abdomen: Normal bowel sounds, Soft, No tenderness Extremities: No edema - Results Results: Laboratory Results WBC 8.9 x10^3/uL (4.8-10.8) 04/03/19 04:55 RBC 3.27 10^6/uL (4.20-5.40) L 04/03/19 04:55 Hgb 10.0 g/dL (12.0-16.0) L 04/03/19 04:55 Hct 31.6 % (37.0-47.0) L 04/03/19 04:55 MCV 96.6 fL (81.0-99.0) 04/03/19 04:55 MCH 30.6 pg (27.0-31.0) 04/03/19 04:55 MCHC 31.6 g/dL (32.0-36.0) L 04/03/19 04:55 RDW 13.1 % (12.0-15.0) 04/03/19 04:55 Plt Count 192 10^3/uL (130-450) 04/03/19 04:55 MPV 9.6 fL (7.9-10.8) 04/03/19 04:55 Neut # (Auto) 5.8 10^3/uL (1.5-6.6) 04/03/19 04:55 Lymph # (Auto) 1.8 10^3/uL (1.5-3.5) 04/03/19 04:55 Placer # (Auto) 0.8 10^3/uL (0.0-1.0) 04/03/19 04:55 Eos # (Auto) 0.3 10^3/uL (0.0-0.7) 04/03/19 04:55 Baso # (Auto) 0.1 10^3/uL (0.0-0.1) 04/03/19 04:55 Absolute Nucleated RBC 0.00 x10^3/uL 04/03/19 04:55 Nucleated RBC % 0.0 /100WBC 04/03/19 04:55 Sodium 138 mmol/L (135-145) 04/03/19 04:55 Potassium 3.6 mmol/L (3.5-5.0) 04/03/19 04:55 Chloride 111 mmol/L (101-111) 04/03/19 04:55 Carbon Dioxide 21 mmol/L (21-32) 04/03/19 04:55 Anion Gap 6.0 (6-13) 04/03/19 04:55 BUN 10 mg/dL (6-20) 04/03/19 04:55 Creatinine 0.9 mg/dL (0.4-1.0) 04/03/19 04:55 Estimated GFR (MDRD) 61 (>89) L 04/03/19 04:55 Glucose 113 mg/dL (70-100) H 04/03/19 04:55 Lactic Acid 1.9 mmol/L (0.5-2.2) 04/01/19 17:01 Calcium 7.8 mg/dL (8.5-10.3) L 04/03/19 04:55 Magnesium 2.3 mg/dL (1.7-2.8) 04/02/19 05:00 Total Bilirubin 0.4 mg/dL (0.2-1.0) 04/03/19 04:55 AST 25 IU/L (10-42) 04/03/19 04:55 ALT 12 IU/L (10-60) 04/03/19 04:55 Alkaline Phosphatase 44 IU/L (42-121) 04/03/19 04:55 Total Protein 5.0 g/dL (6.7-8.2) L 04/03/19 04:55 Albumin 2.7 g/dL (3.2-5.5) L 04/03/19 04:55 Globulin 2.3 g/dL (2.1-4.2) 04/03/19 04:55 Albumin/Globulin Ratio 1.2 (1.0-2.2) 04/03/19 04:55 Lipase 36 U/L (22-51) 04/01/19 13:24 Urine Color DARK YELLOW 04/01/19 15:20 Urine Clarity CLEAR (CLEAR) 04/01/19 15:20 Urine pH 7.5 PH (5.0-7.5) 04/01/19 15:20 Ur Specific [place] 1.010 (1.002-1.030) 04/01/19 15:20 Urine Protein NEGATIVE mg/dL (NEGATIVE) 04/01/19 15:20 Urine Glucose (UA) NEGATIVE mg/dL (NEGATIVE) 04/01/19 15:20 Urine Ketones TRACE mg/dL (NEGATIVE) 04/01/19 15:20 Urine Occult Blood NEGATIVE (NEGATIVE) 04/01/19 15:20 Urine Nitrite NEGATIVE (NEGATIVE) 04/01/19 15:20 Urine Bilirubin NEGATIVE (NEGATIVE) 04/01/19 15:20 Urine Urobilinogen 2 E.U./dL (NORMAL) H 04/01/19 15:20 Ur Leukocyte Esterase NEGATIVE (NEGATIVE) 04/01/19 15:20 Ur Microscopic Review NOT INDICATED 04/01/19 15:20 Urine Culture Comments NOT INDICATED 04/01/19 15:20 Stl C. diff Tox B Gene NEGATIVE (NEGATIVE) 04/02/19 19:50
[2019-04-04] MEDS: SODIUM CHLORIDE FLUSH 0.9% 10 ML SYRINGE IVP SCH ×2 (03:57→09:00)
[2019-04-04] MEDS: CIPROFLOXACIN 400 MG/200 ML 200 ML IV SCH (04:29)
[2019-04-04 04:57] LABS: BASOPHILS # (AUTO) 0.1 10^3/uL (0.0-0.1); BASOPHILS % (AUTO) 0.9 %; EOSINOPHILS # (AUTO) 0.4 10^3/uL (0.0-0.7); EOSINOPHILS % (AUTO) 4.7 %; HGB - HEMOGLOBIN 10.2 g/dL (12.0-16.0); LYMPHOCYTES # (AUTO) 1.4 10^3/uL (1.5-3.5); MEAN CORPUSCULAR HEMOGLOBIN 30.4 pg (27.0-31.0); MEAN CORPUSCULAR VOLUME 95.2 fL (81.0-99.0); MEAN PLATELET VOLUME 9.6 fL (7.9-10.8); MONOCYTES % (AUTO) 12.4 %; NEUTROPHILS # (AUTO) 4.9 10^3/uL (1.5-6.6); NEUTROPHILS % (AUTO) 63.6 %; PLT - PLATELET COUNT 210 10^3/uL (130-450); RED BLOOD COUNT 3.35 10^6/uL (4.20-5.40); RED CELL DISTRIBUTION WIDTH 12.6 % (12.0-15.0); WHITE BLOOD COUNT 7.7 x10^3/uL (4.8-10.8)
[2019-04-04 05:09] LABS: ALBUMIN 2.9 g/dL (3.2-5.5); ALBUMIN/GLOBULIN RATIO 1.1 (1.0-2.2); BILIRUBIN,TOTAL 0.6 mg/dL (0.2-1.0); CALCIUM 8.2 mg/dL (8.5-10.3); CREATININE 0.8 mg/dL (0.4-1.0); TOTAL PROTEIN 5.5 g/dL (6.7-8.2)
[2019-04-04] MEDS: metroNIDAZOLE 500 MG/100 ML 500 MG/100 ML BAG IV SCH (05:38)
[2019-04-04] MEDS ORDERED: POTASSIUM CHLORIDE 20 MEQ TABLET PO SCH (07:03)
[2019-04-04] MEDS ORDERED: D5NS W/20 MEQ KCL 1,000 ML IV SCH (08:28)
[2019-04-04] MEDS ORDERED: LOPERAMIDE 2 MG CAPSULE PO PRN (08:28)
[2019-04-04 09:00] VITALS: BP 163/74
[2019-04-04] MEDS ORDERED: LACTOBACILLUS RHAMNOSUS GG CAPSULE PO SCH (09:00)
[2019-04-04] MEDS: FLUoxetine 10 MG CAPSULE PO SCH (09:12)
[2019-04-04] MEDS: FAMOTIDINE 20 MG/2 ML VIAL IVP SCH (09:13)
--- NOTE | 2019-04-04 10:47 | Discharge Plan ---
Discharge Plan Problem Reviewed?: Yes Disposition: Home, Self Care Condition: Fair Prescriptions: Ciprofloxacin HCl [Cipro] 500 mg PO DAILY #4 tablet Lactobacillus Rhamnosus GG [Culturelle] 1 cap PO DAILY #7 capsule metroNIDAZOLE [Flagyl] 250 mg PO TID #12 tablet Diet: Soft (Low fiber) Activity Restrictions: Activity as Tolerated Shower Restrictions: No Driving Restrictions: No Instruction Topics: Colitis Ulcerative Lifestyle Health Concerns: You were admitted with acute colitis (inflammation of the colon), which may have been caused by your hard stools and chronic constipation. Plan of Treatment: You are being discharged to take several more days of oral antibiotics, also probiotics and you need better management for your constipation. Until this bout of colitis has resolved and all your antibiotics are finished, you should eat a low fiber diet. Following that, you need high bulk foods and consider supplement intake (like MiraLAX daily) to have more frequent and regular, not hard, bowel movements. Also, staying well hydrated helps the bowel movements be less hard. Talk to your PCP about all this for further management and you should see your PCP for hospital follow-up in the next 1-2 weeks. You may resume taking all your blood pressure medications. Your new prescriptions were all sent electronically to your [facility]. Care Goals: Improvement in symptoms and stabilization are the goals. Assessment: Patient understands. Additional Instructions or Follow Up instructions: If you have new or worsening symptoms, call your PCP for advice or come to the ER. No Smoking: If you smoke, Please STOP! Call for help. Follow-up with: Jose Levy MD [Primary Care Provider] -
--- NOTE | 2019-04-04 10:59 | DISCHARGE SUMMARY ---
"Discharge Summary Admit Date: 04/01/19 Discharge Date: 04/04/19 Discharging Provider: Dr Chary Fitch Primary Care Provider: Dr Jose Levy Code Status: Attempt Resuscitation Condition at Discharge: Fair Discharge Disposition: 01 Home, Self Care - DIAGNOSES Admission Diagnoses: 1) acute colitis 2) acute kidney injury 3) elevated lactic acid level 4) history of constipation 5) history of hypertension 6) anxiety disorder Discharge Diagnoses with Status of Each Condition: See below - HPI History of Present Illness: This is a 78-year-old white female with a history of hypertension and chronic constipation, typical bowel movements are every 5 days. She presented after no bowel movement for 6 days and acute onset of severe left and right lower quadrant pain. In the emergency room, CT abdomen imaging showed that she had acute colitis, no abscess was seen, her WBC was 15.9 with a left shift, she was mildly dehydrated with a creatinine of 1.1 and lactic acid was elevated at 3.9. - CONSULTS | PROCEDURES Consultations: Dr Sharad Fleming, Gen Surg - HOSPITAL COURSE Hospital Course: (1) Acute colitis She was started on empiric IV Cipro and IV Flagyl. Her abdomen was not tender by the next day, after she passed a large rockhard stool. This was followed by liquidy diarrhea. Campylobacter stool culture was neg and C diff PCR was neg. At admission, she was started on IV fluids, anti-emetics prn, had bowel rest with n.p.o. status advanced to clear liquids and then she was eventually was able to tolerate solids. WBC decreased from 15>> 11>> 9>> 7.7 on the day of discharge. She was discharged home to take 4 more days of Flagyl 250 mg p.o. tid and Cipro 500 mg daily and Culturelle 1 tablet daily. (2) Rectal bleeding After her rockhard bowel movement was passed, she had liquid diarrhea followed by rectal bleeding for 1-1/2 days. This is when the general surgery consult was requested. Her abdominal exam however was benign, not consistent with ischemic bowel. Hemoglobin did not drop significantly except for mild hemodilution. (3) Constipation Patient may have had stercoral colitis from large rockhard stool. She will need better management of constipation after discharge, daily MiraLAX is already been suggested by the surgeon, and staying well hydrated. (6) SAPNA (acute kidney injury) Creat improved from 1.1 to 0.8 after iv hydration at 125 cc/hr for 2 days. (4) Hx of essential hypertension Her blood pressures were running 140s/60s therefore Amlodipine was on hold, until the day of discharge when blood pressure became hypertensive. (5) Anxiety Her p.o. daily antianxiety med Fluoxetine continued while here (6) Hypokalemia On the day of discharge her potassium was 3.3, possibly from diarrhea and the inadequate oral intake. Potassium was replaced. - ALLERGIES Allergies/Adverse Reactions: Allergies Allergy/AdvReac Type Severity Reaction Status Date / Time Sulfa (Sulfonamide Allergy Unknown Verified 04/01/19 12:39 Antibiotics) - MEDICATIONS Home Medications: Ambulatory Orders Medication Instructions Recorded Confirmed Fluoxetine HCl 20 mg PO DAILY 04/02/19 04/02/19 Potassium Chloride [K-Dur] 20 meq PO BID 04/02/19 04/02/19 amLODIPine [Norvasc] 5 mg PO DAILY 04/02/19 04/02/19 Ciprofloxacin HCl [Cipro] 500 mg PO DAILY #4 tablet 04/04/19 Lactobacillus Rhamnosus GG 1 cap PO DAILY #7 capsule 04/04/19 [Culturelle] metroNIDAZOLE [Flagyl] 250 mg PO TID #12 tablet 04/04/19 - PHYSICAL EXAM AT DISCHARGE General Appearance: positive: No acute distress, Alert Eyes Bilateral: positive: Normal inspection, EOMI ENT: positive: ENT inspection nml, No signs of dehydration Neck: positive: Nml inspection, No JVD Respiratory: positive: No respiratory distress, Breath sounds nml Cardiovascular: positive: Regular rate & rhythm, No murmur Abdomen: positive: Non-tender, Nml bowel sounds Skin: positive: Color nml Extremities: positive: No pedal edema Neurologic/Psychiatric: positive: Oriented x3, Other (Non-focal) - LABS Result Diagrams: 04/04/19 04:45 04/04/19 04:45 - DIAGNOSTIC IMAGING Diagnostic Imaging Results: Final report reviewed - FOLLOW UP Follow Up: See PCP in 1-2 weeks in hospital follow-up. - TIME SPENT Time Spent in Discharge (Minutes): 45"
== END 2019-04-04 13:39 | disposition home or self-care (01) | DRG 392 ==
LOC: EDUNIT# → ED 12:34 → MS2 15:32
PROVIDERS: ADMIT Internal Medicine; ATTEND Internal Medicine
DX: K52.9 Noninfective gastroenteritis and colitis, unspecified (principal); N17.9 Acute kidney failure, unspecified; K64.4 Residual hemorrhoidal skin tags; K62.5 Hemorrhage of anus and rectum; E86.0 Dehydration; E87.6 Hypokalemia; I10 Essential (primary) hypertension; F41.9 Anxiety disorder, unspecified; K59.04 Chronic idiopathic constipation; R11.2 Nausea with vomiting, unspecified; Z79.899 Other long term (current) drug therapy; Z87.891 Personal history of nicotine dependence; Z98.51 Tubal ligation status
CPT/HCPCS: 36415; 74177; 80053; 81003; 83605; 83690; 83735; 85025; 87045; 87046; 87493; 96361; 96374; 97161; 99284; 99285; A9270; Q9967; 81001; 87086

== ENCOUNTER 2019-06-18 09:50 | Outpatient (CLI) | payer MEDICARE, MEDICAID ==
[2019-06-18 12:08] LABS: CHOL/HDL RATIO 8.1 (<4.4); CHOLESTEROL 422 mg/dL; HDL CHOLESTEROL 52 mg/dL; LDL CHOLESTEROL,CALCULATED 338 mg/dL; LDL/HDL RATIO 6.5 (<4.4); VLDL CHOLESTEROL 32 mg/dL
== END 2019-06-18 23:59 | disposition home or self-care (01) ==
LOC: LAB.WCP 09:50
PROVIDERS: ATTEND Family Medicine
DX: E78.5 Hyperlipidemia, unspecified (principal); I10 Essential (primary) hypertension
CPT/HCPCS: 36415; 80061; 83721; 84443

== ENCOUNTER 2019-12-08 11:15 | Outpatient (CLI) | payer MEDICARE, MEDICAID ==
[2019-12-08 18:28] LABS: BASOPHILS # (AUTO) 0.1 10^3/uL (0.0-0.1); BASOPHILS % (AUTO) 1.7 %; EOSINOPHILS # (AUTO) 0.5 10^3/uL (0.0-0.7); HGB - HEMOGLOBIN 12.6 g/dL (12.0-16.0); LYMPHOCYTES # (AUTO) 1.9 10^3/uL (1.5-3.5); LYMPHOCYTES % (AUTO) 28.5 %; MEAN CORPUSCULAR HEMOGLOBIN 30.9 pg (27.0-31.0); MEAN CORPUSCULAR HGB CONC 31.7 g/dL (32.0-36.0); MEAN CORPUSCULAR VOLUME 97.3 fL (81.0-99.0); MEAN PLATELET VOLUME 9.7 fL (7.9-10.8); MONOCYTES # (AUTO) 0.6 10^3/uL (0.0-1.0); MONOCYTES % (AUTO) 8.6 %; NEUTROPHILS # (AUTO) 3.4 10^3/uL (1.5-6.6); NEUTROPHILS % (AUTO) 52.9 %; PLT - PLATELET COUNT 265 10^3/uL (130-450); RED BLOOD COUNT 4.08 10^6/uL (4.20-5.40); RED CELL DISTRIBUTION WIDTH 12.5 % (12.0-15.0); WHITE BLOOD COUNT 6.5 x10^3/uL (4.8-10.8)
[2019-12-08 18:59] LABS: ALBUMIN 3.9 g/dL (3.2-5.5); ALBUMIN/GLOBULIN RATIO 1.3 (1.0-2.2); ALKALINE PHOSPHATASE 67 IU/L (42-121); ALT ALANINE AMINOTRANSFERASE 14 IU/L (10-60); AST ASPARTATE AMINOTRANSFERASE 21 IU/L (10-42); BILIRUBIN,TOTAL 0.8 mg/dL (0.2-1.0); BUN - BLOOD UREA NITROGEN 16 mg/dL (6-20); CALCIUM 9.3 mg/dL (8.5-10.3); CARBON DIOXIDE - CO2 28 mmol/L (21-32); CHLORIDE 104 mmol/L (101-111); CHOL/HDL RATIO 3.9 (<4.4); CHOLESTEROL 236 mg/dL; CREATININE 1.2 mg/dL (0.4-1.0); GLUCOSE 79 mg/dL (70-100); HDL CHOLESTEROL 61 mg/dL; LDL CHOLESTEROL,CALCULATED 151 mg/dL; LDL/HDL RATIO 2.5 (<4.4); SODIUM 139 mmol/L (135-145); TOTAL PROTEIN 6.9 g/dL (6.7-8.2); VLDL CHOLESTEROL 24 mg/dL
== END 2019-12-08 23:59 | disposition home or self-care (01) ==
LOC: LAB.WCP 11:15
PROVIDERS: ATTEND Family Medicine
DX: E78.5 Hyperlipidemia, unspecified (principal); I12.9 Hypertensive chronic kidney disease with stage 1 through stage 4 chronic kidney disease, or unspecified chronic kidney disease; N18.30 Chronic kidney disease, stage 3 unspecified
CPT/HCPCS: 36415; 80053; 80061; 83721; 84443; 85025

== ENCOUNTER 2020-08-23 10:42 | Outpatient (CLI) | payer MEDICARE, MEDICAID ==
[2020-08-23 13:22] LABS: ALBUMIN 4.1 g/dL (3.2-5.5); ALBUMIN/GLOBULIN RATIO 1.4 (1.0-2.2); BILIRUBIN,TOTAL 0.8 mg/dL (0.2-1.0); CALCIUM 9.3 mg/dL (8.5-10.3); CREATININE 1.3 mg/dL (0.4-1.0); POTASSIUM 4.1 mmol/L (3.5-5.0)
[2020-08-23 14:07] LABS: ESTIMATED AVERAGE GLUCOSE 105 mg/dL (70-100); HEMOGLOBIN A1c% 5.3 % (4.27-6.07)
== END 2020-08-23 10:43 | disposition home or self-care (01) ==
LOC: LAB.N 10:42
PROVIDERS: ATTEND Family Medicine
DX: E78.5 Hyperlipidemia, unspecified (principal); I12.9 Hypertensive chronic kidney disease with stage 1 through stage 4 chronic kidney disease, or unspecified chronic kidney disease; N18.30 Chronic kidney disease, stage 3 unspecified; R73.01 Impaired fasting glucose
CPT/HCPCS: 36415; 80053; 83036

== ENCOUNTER 2020-12-05 10:54 | Outpatient (CLI) | payer MEDICARE, MEDICAID ==
[2020-12-05 17:48] LABS: BASOPHILS # (AUTO) 0.1 10^3/uL (0.0-0.1); BASOPHILS % (AUTO) 1.9 %; BILIRUBIN,URINE NEGATIVE (NEGATIVE); EOSINOPHILS # (AUTO) 0.4 10^3/uL (0.0-0.7); EOSINOPHILS % (AUTO) 6.5 %; GLUCOSE, URINE (UA) NEGATIVE (NEGATIVE); HCT - HEMATOCRIT 41.3 % (37.0-47.0); HGB - HEMOGLOBIN 13.2 g/dL (12.0-16.0); KETONES,URINE (UA) NEGATIVE (NEGATIVE); LEUKOCYTE ESTERASE, URINE LARGE (NEGATIVE); LYMPHOCYTES % (AUTO) 29.3 %; MEAN CORPUSCULAR HEMOGLOBIN 31.2 pg (27.0-31.0); MEAN CORPUSCULAR VOLUME 97.6 fL (81.0-99.0); MEAN PLATELET VOLUME 9.8 fL (7.9-10.8); MONOCYTES # (AUTO) 0.6 10^3/uL (0.0-1.0); MONOCYTES % (AUTO) 9.4 %; NEUTROPHILS # (AUTO) 3.5 10^3/uL (1.5-6.6); NEUTROPHILS % (AUTO) 52.6 %; NITRITE,URINE NEGATIVE (NEGATIVE); OCCULT BLOOD,URINE TRACE-INTA (NEGATIVE); PH,URINE 6.5 PH (5.0-7.5); PLT - PLATELET COUNT 284 10^3/uL (130-450); PROTEIN,URINE 30 mg/dL (NEGATIVE); RED BLOOD COUNT 4.23 10^6/uL (4.20-5.40); RED CELL DISTRIBUTION WIDTH 12.7 % (12.0-15.0); UROBILINOGEN,URINE 0.2 (NORMAL) E.U./dL (NORMAL); WHITE BLOOD COUNT 6.7 x10^3/uL (4.8-10.8)
[2020-12-05 17:52] LABS: BACTERIA,URINE Few /HPF (None Seen); CLARITY,URINE SL. CLOUDY (CLEAR); MUCUS,URINE Few Strands; SQUAMOUS EPITHELIAL CELL,UR FEW Squamous (<= Few); WBC,URINE >25 /HPF (0-5)
[2020-12-05 18:09] LABS: ALBUMIN 4.2 g/dL (3.2-5.5); ALBUMIN/GLOBULIN RATIO 1.4 (1.0-2.2); ALKALINE PHOSPHATASE 71 IU/L (42-121); ALT ALANINE AMINOTRANSFERASE 12 IU/L (10-60); AST ASPARTATE AMINOTRANSFERASE 22 IU/L (10-42); BILIRUBIN,TOTAL 0.7 mg/dL (0.2-1.0); BUN - BLOOD UREA NITROGEN 14 mg/dL (6-20); CALCIUM 9.4 mg/dL (8.5-10.3); CARBON DIOXIDE - CO2 26 mmol/L (21-32); CHLORIDE 103 mmol/L (101-111); CHOL/HDL RATIO 3.5 (<4.4); CHOLESTEROL 230 mg/dL; CREATININE 1.1 mg/dL (0.4-1.0); GFR - MDRD 48 (>89); GLUCOSE 83 mg/dL (70-100); HDL CHOLESTEROL 65 mg/dL; LDL CHOLESTEROL,CALCULATED 145 mg/dL; LDL/HDL RATIO 2.2 (<4.4); POTASSIUM 4.1 mmol/L (3.5-5.0); SODIUM 139 mmol/L (135-145); TOTAL PROTEIN 7.1 g/dL (6.7-8.2); TRIGLYCERIDES 99 mg/dL; VLDL CHOLESTEROL 20 mg/dL
[2020-12-05 18:17] LABS: THYROID STIMULATING HORMONE 2.31 uIU/mL (0.34-5.60)
== END 2020-12-05 23:59 | disposition home or self-care (01) ==
LOC: LAB.WCP 10:54
PROVIDERS: ATTEND Nurse Practitioner
DX: I12.9 Hypertensive chronic kidney disease with stage 1 through stage 4 chronic kidney disease, or unspecified chronic kidney disease (principal); N18.32 Chronic kidney disease, stage 3b; E78.5 Hyperlipidemia, unspecified; R53.83 Other fatigue
CPT/HCPCS: 36415; 80053; 80061; 81001; 83721; 84443; 85025; 87086

== ENCOUNTER 2022-03-04 11:56 | Outpatient (CLI) | payer MEDICARE, MEDICAID ==
[2022-03-04 17:57] LABS: BASOPHILS # (AUTO) 0.1 10^3/uL (0.0-0.1); BASOPHILS % (AUTO) 1.3 %; EOSINOPHILS # (AUTO) 0.4 10^3/uL (0.0-0.7); HCT - HEMATOCRIT 40.5 % (37.0-47.0); HGB - HEMOGLOBIN 12.8 g/dL (12.0-16.0); LYMPHOCYTES # (AUTO) 1.6 10^3/uL (1.5-3.5); LYMPHOCYTES % (AUTO) 23.3 %; MEAN CORPUSCULAR HEMOGLOBIN 30.9 pg (27.0-31.0); MEAN CORPUSCULAR HGB CONC 31.6 g/dL (32.0-36.0); MEAN CORPUSCULAR VOLUME 97.8 fL (81.0-99.0); MEAN PLATELET VOLUME 9.9 fL (7.9-10.8); MONOCYTES # (AUTO) 0.7 10^3/uL (0.0-1.0); MONOCYTES % (AUTO) 9.8 %; NEUTROPHILS # (AUTO) 4.3 10^3/uL (1.5-6.6); NEUTROPHILS % (AUTO) 60.3 %; PLT - PLATELET COUNT 255 10^3/uL (130-450); RED BLOOD COUNT 4.14 10^6/uL (4.20-5.40); RED CELL DISTRIBUTION WIDTH 13.2 % (12.0-15.0)
[2022-03-04 18:12] LABS: ALBUMIN 3.7 g/dL (3.2-5.5); ALBUMIN/GLOBULIN RATIO 1.2 (1.0-2.2); ALKALINE PHOSPHATASE 72 IU/L (42-121); ALT ALANINE AMINOTRANSFERASE 12 IU/L (10-60); AST ASPARTATE AMINOTRANSFERASE 19 IU/L (10-42); BILIRUBIN,TOTAL 0.8 mg/dL (0.2-1.0); BUN - BLOOD UREA NITROGEN 15 mg/dL (6-20); CALCIUM 9.4 mg/dL (8.5-10.3); CARBON DIOXIDE - CO2 30 mmol/L (21-32); CHLORIDE 106 mmol/L (101-111); CHOL/HDL RATIO 3.8 (<4.4); CHOLESTEROL 240 mg/dL; CREATININE 1.1 mg/dL (0.4-1.0); GFR - MDRD 48 (>89); GLUCOSE 86 mg/dL (70-100); HDL CHOLESTEROL 64 mg/dL; LDL CHOLESTEROL,CALCULATED 153 mg/dL; LDL/HDL RATIO 2.4 (<4.4); POTASSIUM 4.4 mmol/L (3.5-5.0); SODIUM 142 mmol/L (135-145); TOTAL PROTEIN 6.9 g/dL (6.7-8.2); TRIGLYCERIDES 113 mg/dL; VLDL CHOLESTEROL 23 mg/dL
[2022-03-04 18:23] LABS: THYROID STIMULATING HORMONE 2.35 uIU/mL (0.34-5.60)
[2022-03-05 11:33] LABS: ESTIMATED AVERAGE GLUCOSE 105 mg/dL (70-100); HEMOGLOBIN A1c% 5.3 % (4.27-6.07)
== END 2022-03-04 11:57 | disposition home or self-care (01) ==
LOC: LAB.N 11:56
PROVIDERS: ATTEND Nurse Practitioner
DX: E78.5 Hyperlipidemia, unspecified (principal); E78.01 Familial hypercholesterolemia; R53.83 Other fatigue; R73.01 Impaired fasting glucose
CPT/HCPCS: 36415; 80053; 80061; 83036; 83721; 84443; 85025

== ENCOUNTER 2023-04-03 13:28 | Outpatient (CLI) | payer MEDICARE, MEDICAID ==
[2023-04-03 17:38] LABS: BASOPHILS # (AUTO) 0.1 10^3/uL (0.0-0.1); BASOPHILS % (AUTO) 1.3 %; EOSINOPHILS # (AUTO) 0.5 10^3/uL (0.0-0.7); EOSINOPHILS % (AUTO) 6.2 %; HCT - HEMATOCRIT 41.2 % (37.0-47.0); HGB - HEMOGLOBIN 12.9 g/dL (12.0-16.0); LYMPHOCYTES # (AUTO) 1.5 10^3/uL (1.5-3.5); LYMPHOCYTES % (AUTO) 19.3 %; MEAN CORPUSCULAR HGB CONC 31.3 g/dL (32.0-36.0); MEAN CORPUSCULAR VOLUME 95.8 fL (81.0-99.0); MEAN PLATELET VOLUME 9.6 fL (7.9-10.8); MONOCYTES # (AUTO) 0.9 10^3/uL (0.0-1.0); MONOCYTES % (AUTO) 12.1 %; NEUTROPHILS # (AUTO) 4.6 10^3/uL (1.5-6.6); NEUTROPHILS % (AUTO) 60.8 %; PLT - PLATELET COUNT 294 10^3/uL (130-450); RED CELL DISTRIBUTION WIDTH 12.8 % (12.0-15.0); WHITE BLOOD COUNT 7.6 x10^3/uL (4.8-10.8)
[2023-04-03 18:01] LABS: ALBUMIN 3.9 g/dL (3.2-5.5); ALBUMIN/GLOBULIN RATIO 1.3 (1.0-2.2); ALKALINE PHOSPHATASE 104 IU/L (42-121); ALT ALANINE AMINOTRANSFERASE 12 IU/L (10-60); AST ASPARTATE AMINOTRANSFERASE 19 IU/L (10-42); BILIRUBIN,TOTAL 0.5 mg/dL (0.2-1.0); BUN - BLOOD UREA NITROGEN 13 mg/dL (6-20); CALCIUM 9.5 mg/dL (8.5-10.3); CARBON DIOXIDE - CO2 28 mmol/L (21-32); CHLORIDE 104 mmol/L (101-111); CHOL/HDL RATIO 3.6 (<4.4); CHOLESTEROL 179 mg/dL; CREATININE 1.1 mg/dL (0.6-1.3); GFR - MDRD 48 (>89); GLUCOSE 87 mg/dL (74-104); HDL CHOLESTEROL 50 mg/dL; LDL CHOLESTEROL,CALCULATED 100 mg/dL; POTASSIUM 4.1 mmol/L (3.5-4.5); SODIUM 138 mmol/L (135-145); TOTAL PROTEIN 6.9 g/dL (6.4-8.9); TRIGLYCERIDES 146 mg/dL (48-352); VLDL CHOLESTEROL 29 mg/dL
[2023-04-03 18:13] LABS: THYROID STIMULATING HORMONE 1.98 uIU/mL (0.34-5.60)
== END 2023-04-03 13:29 | disposition home or self-care (01) ==
LOC: LAB.N 13:28
PROVIDERS: ATTEND Nurse Practitioner
DX: E78.01 Familial hypercholesterolemia (principal); R53.83 Other fatigue
CPT/HCPCS: 36415; 80053; 80061; 83721; 84443; 85025